=== PATIENT | male | born 1975 | race African-American/Black ===

== ENCOUNTER 2024-11-23 19:22 | Emergency (ER) | payer MEDICAID ==
[~2024-11-23] VITALS: Ht 175.3 cm; Wt 82.0 kg
[~2024-11-23 19:22] MED LIST: AMIODARONE HCL 50MG/ML 3ML VIAL IV ONE
[2024-11-23 19:35] VITALS: PULSE 71; RESP 20; O2SAT 93
[2024-11-23 19:42] VITALS: BP 68/30; PULSE 75; RESP 15; TEMP 34.8; O2SAT 90
[2024-11-23] MEDS ORDERED: DOPAMINE 400MG/250ML PREMIX 250 ML IV ONE (20:15)
== END 2024-11-23 23:00 ==
LOC: EDBD 19:22 → ER 19:22 → EDBEDREQ 20:08 → EDBEDREQTM 20:08 → ER 23:00
DX: I46.9 Cardiac arrest, cause unspecified (principal); J81.0 Acute pulmonary edema; Z79.899 Other long term (current) drug therapy
CPT/HCPCS: 82962; 71045; 94640; 31500; 36556; 92950; 99285; J0282; J3490 ×3; J1265; Z7610 ×4; 94003; 94660